=== PATIENT | male | born 1965 | race Native Hawaiian/Other Pacific Islander ===

== ENCOUNTER 2016-07-04 07:45 | Day surgery (SDC) | payer OTHER ==
[2016-06-24 10:41] VITALS: BMI 27.7
[2016-07-04] MEDS ORDERED: Propofol 10 mg/ml Inj (20 ML) ONE (09:07)
[2016-07-04] MEDS ORDERED: Lactated Ringer's 1,000 ML IV SCH (10:06)
[2016-07-04 10:46] VITALS: BP 116/64; PULSE 75; RESP 18; TEMP 97.5; O2SAT 98
== END 2016-07-04 11:09 | disposition home or self-care (01) ==
LOC: ENDO 07:45
PROVIDERS: ATTEND Internal Medicine
DX: Z12.11 Encounter for screening for malignant neoplasm of colon (principal); D12.5 Benign neoplasm of sigmoid colon; D12.3 Benign neoplasm of transverse colon; K62.1 Rectal polyp; K57.30 Diverticulosis of large intestine without perforation or abscess without bleeding; K64.8 Other hemorrhoids
CPT/HCPCS: 45380; 88305; J2001; J2704; J7040; J7120